=== PATIENT | male | born 1965 | race Caucasian/White ===

== ENCOUNTER 2020-07-04 08:58 | Emergency (ER) | payer OTHER ==
[2020-07-04] VITALS (9 sets, daily range): BP systolic 107–142; BP diastolic 42–66
[~2020-07-04] VITALS: Ht 175.2 cm; Wt 124.7 kg
[2020-07-04 09:27] LABS: MEAN CELL VOLUME 122.7 fl (80.0-94.0); MEAN CORPUSCULAR HGB 40.3 pg (27.0-31.0); MEAN CORPUSCULAR HGB CONC 32.9 g/dl (33.0-37.0); MEAN PLATELET VOLUME 7.7 fl (9.6-12.3); PLATELET COUNT AUTOMATED 48 10*3/uL (130-400); RED BLOOD COUNT 1.19 10*6/uL (4.50-5.90); RED CELL DISTRI WIDTH 17.2 % (0-14.5)
[2020-07-04 09:34] LABS: WHITE BLOOD COUNT 1.3 10*3/uL (4.8-10.8)
[2020-07-04 09:35] LABS: HEMATOCRIT 14.6 % (42.0-52.0)
[2020-07-04 09:42] LABS: ALBUMIN 3.1 gm/dl (3.1-4.5); ALKALINE PHOSPHATASE 76 U/L (45-117); BUN 14 mg/dl (7-24); CHLORIDE 112 mmol/L (98-107); CREATININE 0.95 mg/dL (0.70-1.30); LIPASE 102 U/L (73-393); POTASSIUM 4.2 mmol/L (3.5-5.1); SGOT/AST 18 IU/L (3-35); SGPT/ALT 21 U/L (12-78); SODIUM 141 mmol/L (136-145); TOTAL PROTEIN 8.2 gm/dL (6.4-8.2)
[2020-07-04 09:44] LABS: TROPONIN I < 0.015 ng/ml (<0.045)
[2020-07-04 09:49] LABS: ACT PARTIAL THROMBO TIME 22.9 SECONDS (20.0-32.1); ATYPICAL LYMPHS 1 % (0-0); INTERNATIONAL NORM RATIO 1.1 (2.0-3.5); OVALOCYTES FEW; PLATELET SUFFICIENCY LOW (NORMAL); POLYCHROMASIA SLIGHT; ROULEAUX MODERATE; TOTAL CELLS COUNTED 100 #CELLS
== END 2020-07-04 18:25 | disposition short-term general hospital (02) ==
LOC: ED 08:58
PROVIDERS: Emergency Medicine
DX: D61.818 Other pancytopenia (principal); I10 Essential (primary) hypertension